=== PATIENT | male | born 1985 | race American Indian/Alaskan Native ===

== ENCOUNTER 2017-02-04 19:31 | Emergency (ER) | payer BC ==
[2017-02-04 19:32] VITALS: BMI 28.1
--- NOTE | 2017-02-04 20:38 | ED PDOC ---
Arrival/HPI <Veronika Flores - Last Filed: 02/04/17 22:53> - General Historian: Patient - History of Present Illness Time/Duration: < week (3 days ) Symptom Onset: Gradual Symptom Course: Intermittent Severity Level: Mild <Fred Cowart - Last Filed: 02/04/17 23:05> - General Chief Complaint: Abdominal Pain Time Seen by Provider: 02/04/17 20:15 - History of Present Illness Narrative History of Present Illness (Text): 02/04/17 20:35 31 year old M w/ no Past medical history presents to the Emergency department complaining of abd pain. Pt reports a "funny feeling" in his abd x3days that progressed to intense pain this afternoon while at work. Pt states pain lasted ~ 1hr before resolving. Pain then returned when pt returned home from work which prompted pt to come be evaluated. Pt has never had this pain before. Pain localized to epigastric w/ radiation into RUQ. Pt reports eating a fattier diet than normal over the weekend. Pt admits to 2 episodes of loose BM this AM but no kriss diarrhea. Pt denies F/C, chest pain, shortness of breath, N/V, reflux, D/C. (Veronika Flores) Past Medical History - Provider Review Nursing Documentation Reviewed: Yes - Infectious Disease Hx of Infectious Diseases: None - Tetanus Immunization Tetanus Immunization: Unknown - Psychiatric Hx Depression: No Hx Emotional Abuse: No Hx Physical Abuse: No Hx Substance Use: No - Suicidal Assessment Feels Threatened In Home Enviroment: No <Veronika Flores - Last Filed: 02/04/17 22:53> Family/Social History Family/Social History: No Known Family HX Smoking Status: n Hx Alcohol Use: Yes Hx Substance Use: No Hx Substance Use Treatment: No <Veronika Flores - Last Filed: 02/04/17 22:53> - Physician Review Nursing Documentation Reviewed: Yes <Fred Cowart - Last Filed: 02/04/17 23:05> Allergies/Home Meds <Veronika Flores - Last Filed: 02/04/17 22:53> <Fred Cowart - Last Filed: 02/04/17 23:05> Allergies/Adverse Reactions: Allergies No Known Allergies Allergy (Verified 06/15/13 14:41) Home Medications: Home Meds Medication Instructions Recorded Confirmed No Known Home Med [No Known Home 06/15/13 06/15/13 Med] Review of Systems - Physician Review All systems were reviewed & negative as marked: Yes - Review of Systems Constitutional: absent: Fevers Cardiovascular: absent: Chest Pain <Veronika Flores - Last Filed: 02/04/17 22:53> - Review of Systems Gastrointestinal: Abdominal Pain <Fred Cowart - Last Filed: 02/04/17 23:05> Physical Exam Vital Signs Reviewed: Yes Temperature: Afebrile Blood Pressure: Normal Pulse: Regular Respiratory Rate: Normal Appearance: Positive for: Well-Appearing, Non-Toxic, Comfortable Pain Distress: None Mental Status: Positive for: Alert and Oriented X 3 - Systems Exam Head: Present: Atraumatic, Normocephalic Pupils: Present: PERRL Extroacular Muscles: Present: EOMI Mouth: Present: Moist Mucous Membranes Respiratory/Chest: Present: Clear to Auscultation, Good Air Exchange. No: Respiratory Distress, Accessory Muscle Use Cardiovascular: Present: Regular Rate and Rhythm, Normal S1, S2. No: Murmurs Abdomen: Present: Normal Bowel Sounds. No: Tenderness, Distention, Peritoneal Signs, Rebound, McBurney's Point Tender, Rovsing's Sign Present Upper Extremity: Present: Normal Inspection Lower Extremity: Present: Normal Inspection Neurological: Present: GCS=15, Speech Normal Skin: Present: Warm, Dry, Normal Color Psychiatric: Present: Alert, Oriented x 3, Normal Affect, Normal Mood <Veronika Flores - Last Filed: 02/04/17 22:53> Medical Decision Making - Lab Interpretations I have reviewed the lab results: Yes Interpretation: All labs normal <Veronika Flores - Last Filed: 02/04/17 22:53> - RAD Interpretation Filler Shaker: Radiologist <Fred Cowart - Last Filed: 02/04/17 23:05> ED Course and Treatment: 02/04/17 20:54 31 year old M w/ abd pain - Pepcid - CBC, BMP, Lipase - Chest X-ray - Abd 02/04/17 21:09 (Veronika Flores) Patient Seen With Resident: In agreement with resident note and more details are present in their notes. Patient was seen and evaluated with resident, came up with plan and treatment together. Patient is a 31 year old male who presents to the emergency department complaining of 3 day duration of intermittent epigastric abdominal pain radiating to right upper quadrant. Labs, abdominal ultrasound and Chest X-ray are unremarkable. On re-evaluation, patient feels better and is in no acute distress. I have discussed the results and plan with the patient, who expresses understanding. Patient in agreement with plan to be discharged home. Patient is stable for discharge. Patient was instructed to follow up with physician or return if symptoms worsen or new concerning symptoms arise. (Fred Cowart) - Lab Interpretations Lab Results: 02/04/17 21:25 02/04/17 21:25 Lab Results 02/04/17 21:25: Sodium 138, Potassium 4.3, Chloride 100, Carbon Dioxide 30, Anion Gap 12, BUN 19, Creatinine 0.9, Est GFR ( Amer) > 60, Est GFR (Non- Af Amer) > 60, Random Glucose 86, Calcium 9.3, Total Bilirubin 1.3, AST 29, ALT 43, Alkaline Phosphatase 51, Lactate Dehydrogenase 443, Total Creatine Kinase 133, Troponin I < 0.01, Total Protein 7.9, Albumin 4.3, Globulin 3.6, Albumin/ Globulin Ratio 1.2, Lipase 59 02/04/17 21:25: WBC 4.8, RBC 5.20, Hgb 15.2, Hct 43.8, MCV 84.2, MCH 29.2, MCHC 34.7, RDW 13.1, Plt Count 236, MPV 8.7, Gran % 40.9 L, Lymph % (Auto) 51.0 H, Logan % (Auto) 5.4, Eos % (Auto) 1.9, Baso % (Auto) 0.8, Gran # 1.95, Lymph # 2.4 , Logan # 0.3, Eos # 0.1, Baso # 0.04 - RAD Interpretation Narrative RAD Interpretations (Text): 02/04/17 22:53 Abd US: FINDINGS: Liver: Unremarkable. No mass. No intrahepatic bile duct dilation. Gallbladder: Unremarkable. No gallstones. Common bile duct: Unremarkable as visualized. No stones. No dilation. Pancreas: Pancreas is not well-visualized. Kidneys: Unremarkable. No stones. No solid mass. No hydronephrosis. Spleen: Unremarkable. No splenomegaly. Aorta: Unremarkable. No aneurysm. Inferior vena cava: Unremarkable. IMPRESSION: No acute findings. 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 / has examined the patient and agrees with the treatment plan. <Fred Cowart - Last Filed: 02/04/17 23:05> Disposition/Present on Arrival - Present on Arrival Any Indicators Present on Arrival: No History of DVT/PE: No History of Uncontrolled Diabetes: No Urinary Catheter: No History of Decub. Ulcer: No History Surgical Site Infection Following: None - Disposition Have Diagnosis and Disposition been Completed?: Yes Disposition Time: 22:55 <Veronika Flores - Last Filed: 02/04/17 22:53> <Fred Cowart - Last Filed: 02/04/17 23:05> - Disposition Diagnosis: Gastritis Disposition: HOME/ ROUTINE Patient Problems: Current Active Problems Problem Status Onset Gastritis Acute Condition: GOOD Discharge Instructions (ExitCare): Gastritis (ED), Gas and Bloating (ED) Additional Instructions: Follow up w/ PMD in 1-2 weeks Referrals: Andrew Walker MD [Primary Care Provider] - Follow up with primary
[2017-02-04 21:32] LABS: ADD MANUAL DIFF? NO
[2017-02-04 21:33] VITALS: BP 126/64; PULSE 60; RESP 17; TEMP 98.1; O2SAT 98
[2017-02-04 21:42] LABS: BASO # 0.04 K/mm3 (0.0-2.0); BASO % 0.8 % (0.0-3.0); EOS # 0.1 (0.0-0.7); EOS % 1.9 % (1.5-5.0); GRAN # 1.95 (1.4-6.5); GRAN % 40.9 % (50.0-68.0); HEMATOCRIT 43.8 % (42.0-52.0); LYMPH # 2.4 (1.2-3.4); MEAN CELL VOLUME 84.2 fL (80.0-105.0); MEAN CORPUSCULAR HEMOGLOBIN 29.2 pg (25.0-35.0); MEAN CORPUSCULAR HGB CONC 34.7 g/dl (31.0-37.0); MEAN PLATELET VOLUME 8.7 fl (7.0-11.0); MONO # 0.3 (0.1-0.6); MONO % 5.4 % (1.0-6.0); PLATELET COUNT 236 10^3/uL (120.0-450.0); RED CELL DISTRIBUTION WIDTH 13.1 % (11.5-14.5); WHITE BLOOD COUNT 4.8 10^3/ul (4.5-11.0)
[2017-02-04 21:46] LABS: ALB/GLOB RATIO 1.2 (1.1-1.8); ALKALINE PHOSPHATASE 51 U/L (38-133); ALT/SGPT 43 U/L (7-56); AST/SGOT 29 U/L (15-59); BILIRUBIN,TOTAL 1.3 mg/dL (0.2-1.3); BLOOD UREA NITROGEN 19 mg/dL (7-21); CALCIUM 9.3 mg/dL (8.4-10.5); CARBON DIOXIDE 30 mmol/L (21-33); CHLORIDE 100 mmol/L (98-107); GFR AFRICAN-AMERICAN > 60; GLUCOSE,RANDOM 86 mg/dL (70-110); LIPASE 59 U/L (23-300); POTASSIUM 4.3 mmol/L (3.6-5.0); SODIUM 138 mmol/L (132-148); TOTAL PROTEIN 7.9 g/dL (5.8-8.3)
[2017-02-04 22:00] LABS: TROPONIN I < 0.01 ng/mL
--- NOTE | 2017-02-05 10:00 | CARD ---
APPROVED REPORT EKG Measurement Heart [id number] CT [id number] <Conclusion> Sinus bradycardia Minimal voltage criteria for LVH, may be normal variant ST elevation, consider early repolarization, pericarditis, or injury
--- NOTE | 2017-02-05 10:18 | US ---
HISTORY: Abdominal pain COMPARISON: None. TECHNIQUE: Grayscale imaging was performed. FINDINGS: LIVER: Measures 16.1 cm. Normal echogenicity of the liver parenchyma. No mass. No intrahepatic bile duct dilatation. GALLBLADDER: Unremarkable. No gallstones. COMMON BILE DUCT: Measures 3.1 mm. No stones. No dilatation. PANCREAS: Unremarkable as visualized. No mass. No ductal dilatation. RIGHT KIDNEY: Measures 9.4cm. Normal echogenicity. No calculus, mass, or hydronephrosis. LEFT KIDNEY: Measures 10.0cm. Normal echogenicity. No calculus, mass, or hydronephrosis. SPLEEN: Normal in size and contour. No mass. AORTA: No aneurysmal dilatation. IVC: Unremarkable. OTHER FINDINGS: None. IMPRESSION: Normal examination. A preliminary report was provided by [facility].
== END 2017-02-04 23:10 | disposition home or self-care (01) ==
LOC: ED 19:31
DX: K29.70 Gastritis, unspecified, without bleeding (principal)

== ENCOUNTER 2017-03-04 16:45 | Emergency (ER) | payer BC ==
[2017-03-04 17:09] VITALS: BMI 28.3
[2017-03-04 17:12] VITALS: TEMP 97.9
[2017-03-04 17:57] LABS: URINE BILIRUBIN NEGATIVE (NEGATIVE); URINE BLOOD NEGATIVE (NEGATIVE); URINE GLUCOSE (UA) NEGATIVE (NEGATIVE); URINE LEUKOCYTE ESTERASE NEGATIVE Leu/uL (NEGATIVE); URINE NITRATE NEGATIVE (NEGATIVE); URINE PROTEIN NEGATIVE mg/dL (<30 mg/dL); URINE UROBILINOGEN 0.2 E.U./dL (<1 E.U./dL)
[2017-03-04 17:58] LABS: URINE APPEARANCE CLEAR (CLEAR); URINE COLOR YELLOW (YELLOW)
[2017-03-04 18:26] VITALS: BP 114/69; PULSE 71; RESP 18; O2SAT 99
--- NOTE | 2017-03-04 18:30 | ED PDOC ---
Arrival/HPI - General Chief Complaint: Male Genitourinary Time Seen by Provider: 03/04/17 17:40 Historian: Patient - History of Present Illness Narrative History of Present Illness (Text): 03/04/17 19:20 A 31 year old male, who denies any past medical history, presents to the emergency department for two day duration of suprapubic burning on urination and prostate pain on urination. Patient denies any unprotected sex, penile discharge or any other complaints at this time. Time/Duration: Other (2 days) Symptom Onset: Sudden Symptom Course: Unchanged Activities at Onset: Rest Context: Home Past Medical History - Provider Review Nursing Documentation Reviewed: Yes - Infectious Disease Hx of Infectious Diseases: None - Tetanus Immunization Tetanus Immunization: Unknown - Psychiatric Hx Depression: No Hx Emotional Abuse: No Hx Physical Abuse: No Hx Substance Use: No - Anesthesia Hx Anesthesia: No - Suicidal Assessment Feels Threatened In Home Enviroment: No Family/Social History - Physician Review Nursing Documentation Reviewed: Yes Family/Social History: No Known Family HX Smoking Status: Never Smoked Hx Alcohol Use: Yes Frequency of alcohol use: Socially Hx Substance Use: No Hx Substance Use Treatment: No Allergies/Home Meds Allergies/Adverse Reactions: Allergies No Known Allergies Allergy (Verified 03/04/17 17:09) Home Medications: Home Meds Medication Instructions Recorded Confirmed No Known Home Med [No Known Home 06/15/13 03/04/17 Med] Review of Systems - Physician Review All systems were reviewed & negative as marked: Yes Physical Exam - Physical Exam Narrative Physical Exam (Text): 03/04/17 19:14 - Review of Systems Constitutional: Normal. absent: Fatigue, Weight Change, Fevers Eyes: Normal ENT: Normal Respiratory: Normal absent: SOB, Cough, Sputum Cardiovascular: Normal absent: Chest pain, Palpitations, Syncope Gastrointestinal: Normal absent: Abdominal pain, Diarrhea, Nausea, Vomiting Genitourinary: suprapubic burning on urination, prostate pain on urination absent: Frequency, Hematuria Musculoskeletal: Normal. absent: Arthralgias, Back Pain, Neck Pain Skin: Normal Neurological: Normal absent: Focal Weakness Endocrine: Normal Hemo/Lymphatic: Normal Psychiatric: Normal - Physical exam Patient appears age appropriate, speaking full sentences without difficulty - Systems Exam Head: Present: Atraumatic, Normocephalic Pupils: Present: PERRL Extraocular Muscles: Present: EOMI Conjunctiva: Present: Normal Mouth: Present: Moist Mucous Membranes Neck: Present: Normal Range of Motion. No: MIDLINE TENDERNESS, Paraspinal Tenderness Respiratory/Chest: Present: Clear to Auscultation, Good Air Exchange. No: Respiratory Distress, Accessory Muscle Use, Tachypnic Cardiovascular: Present: Regular Rate and Rhythm, Normal S1, S2, Peripheral Pulses Present. No: Murmurs Abdomen: Present: Normal Bowel Sounds, No: Tenderness, Peritoneal Signs, Rebound, Guarding, Distention Back: Present: Normal Inspection. No: Midline Tenderness, Paraspinal Tenderness Upper Extremity: Present: Normal Inspection. No: Cyanosis, Edema Lower Extremity: Present: Normal Inspection. No: Edema Neurological: Present: GCS=15, Speech Normal, cranial nerves II through XII fully intact with no cerebellar abnormality, neuro-sensory fully intact. No focal neurological deficits. Skin: Present: Warm, Dry, Normal Color. No: Rashes Lymphatic: Present: OX3, NI, NC Psychiatric: Present: Alert, Oriented x 3, Normal Insight, Normal Concentration Genitourinary male: (Julián SOLIS present on exam) testicles nontender, no penile discharge, no tenderness. Patient has no internal or external hemorrhoids, no fissures, no prostate tenderness on palpation Vital Signs Reviewed: Yes Vital Signs Temp Pulse Resp BP Pulse Ox 03/04/17 18:25 71 18 114/69 99 03/04/17 17:10 97.9 F 75 19 112/74 98 Temperature: Afebrile Blood Pressure: Normal Pulse: Regular Respiratory Rate: Normal Appearance: Positive for: Well-Appearing, Non-Toxic, Comfortable Pain Distress: None Mental Status: Positive for: Alert and Oriented X 3 Medical Decision Making ED Course and Treatment: 03/04/17 19:12 Impression: A 31 year old male with suprapubic burning on urination and prostate pain on urination. On exam, testicles nontender, no penile discharge, no tenderness. Patient has no internal or external hemorrhoids, no fissures, no prostate tenderness on palpation. Differential Diagnosis included but are not limited to: prostatitis vs. UTI vs. STD Plan: -- labs -- Urinalysis -- Reassess and disposition Prior Visits: Notes and results from previous visits were reviewed. Patient last reported to the emergency department on 02/04/17 for evaluation of abdominal pain. Progress Notes: Patient instructed to follow up with medical records for gonorrhea, chlamydia results. Patient also instructed he needs to follow up with Urologist. prostatitis unlikely since pt has no prostate tenderness to palpation and no evidence of UTI Pt states he understands to return to the ER right away for new or worsening symptoms or for inability to f/u with PMD or specialist as instructed. Patient states that he fully agrees with and understands discharge instructions. States that he agrees with the plan and disposition. Verbalized and repeated discharge instructions and plan. I have given the patient opportunity to ask any additional questions. - Lab Interpretations Lab Results: Lab Results 03/04/17 17:40: Urine Color Yellow, Urine Appearance Clear, Urine pH 6.0, Ur Specific [place] 1.025, Urine Protein Negative, Urine Glucose (UA) Negative, Urine Ketones Negative, Urine Blood Negative, Urine Nitrate Negative, Urine Bilirubin Negative, Urine Urobilinogen 0.2, Ur Leukocyte Esterase Negative I have reviewed the lab results: Yes - Scribe Statement The provider has reviewed the documentation as recorded by the Mita Wiley Provider Scribe Attestation: All medical record entries made by the Scribe were at my direction and personally dictated by me. I have reviewed the chart and agree that the record accurately reflects my personal performance of the history, physical exam, medical decision making, and the department course for this patient. I have also personally directed, reviewed, and agree with the discharge instructions and disposition. Disposition/Present on Arrival - Present on Arrival Any Indicators Present on Arrival: No History of DVT/PE: No History of Uncontrolled Diabetes: No Urinary Catheter: No History of Decub. Ulcer: No History Surgical Site Infection Following: None - Disposition Have Diagnosis and Disposition been Completed?: Yes Diagnosis: Urethritis Disposition: HOME/ ROUTINE Disposition Time: 18:29 Condition: GOOD Discharge Instructions (ExitCare): Nonspecific Urethritis in Men (ED) Additional Instructions: PLEASE RETURN TO THE EMERGENCY DEPARTMENT FOR NEW OR WORSENING SYMPTOMS. RETURN RIGHT AWAY IF YOU CANNOT FOLLOW UP WITH YOUR PRIMARY CARE DOCTOR, CLINIC, OR SPECIALIST IN 1-2 DAYS. Referrals: Andrew Walker MD [Primary Care Provider] - Follow up with primary Maciej Singleton MD [Staff Provider] - Follow up with primary
== END 2017-03-04 18:57 | disposition home or self-care (01) ==
LOC: ED 16:45
DX: N34.2 Other urethritis (principal)

== ENCOUNTER 2018-10-22 19:44 | Emergency (ER) | payer BC ==
[2018-10-22 20:10] VITALS: RESP 18; TEMP 98.1; BMI 26.4
--- NOTE | 2018-10-22 20:30 | ED PDOC ---
Arrival/HPI - General Chief Complaint: Medical Clearance Time Seen by Provider: 10/22/18 19:50 Historian: Patient - History of Present Illness Narrative History of Present Illness (Text): 10/22/18 20:27 33-year-old male presents today with a prescription for a chest x-ray. Patient states he was seen by his primary care physician today and was given a prescription for Augmentin, methylprednisolone, Pro Air and cough medication. Patient states he has had a cough for the past 2 weeks. Patient states he has had yellow sputum with it. He denies chest pain or shortness of breath. He denies any fevers or chills. Complaining of some nasal congestion. No sore throat. No abdominal pain. No nausea or vomiting. No other complaints. Past Medical History - Provider Review Nursing Documentation Reviewed: Yes - Travel History Have you recently traveled outside [place] w/in the past 3 mons?: No - Infectious Disease Hx of Infectious Diseases: None - Tetanus Immunization Tetanus Immunization: Unknown - Psychiatric Hx Depression: No Hx Emotional Abuse: No Hx Physical Abuse: No Hx Substance Use: No - Anesthesia Hx Anesthesia: No - Suicidal Assessment Feels Threatened In Home Enviroment: No Family/Social History - Physician Review Nursing Documentation Reviewed: Yes Family/Social History: Unknown Family HX Smoking Status: Never Smoked Hx Alcohol Use: Yes Hx Substance Use: No Hx Substance Use Treatment: No Allergies/Home Meds Allergies/Adverse Reactions: Allergies No Known Allergies Allergy (Verified 10/22/18 19:57) Home Medications: Home Meds Medication Instructions Recorded Confirmed No Known Home Med 06/15/13 10/22/18 Review of Systems - Review of Systems Constitutional: absent: Fatigue, Fevers ENT: Sinus Congestion Respiratory: Cough, Sputum. absent: SOB, Wheezing Cardiovascular: absent: Chest Pain, Palpitations Gastrointestinal: absent: Abdominal Pain, Nausea, Vomiting Genitourinary Male: absent: Dysuria Musculoskeletal: absent: Arthralgias, Back Pain, Neck Pain Skin: absent: Rash, Pruritis Neurological: absent: Headache, Dizziness Psychiatric: absent: Anxiety, Depression Physical Exam Vital Signs Reviewed: Yes Vital Signs Temp Pulse Resp BP Pulse Ox 10/22/18 19:54 98.1 F 82 18 120/77 99 Temperature: Afebrile Blood Pressure: Normal Pulse: Regular Respiratory Rate: Normal Appearance: Positive for: Well-Appearing, Non-Toxic, Comfortable Pain Distress: None Mental Status: Positive for: Alert and Oriented X 3 - Systems Exam Head: Present: Atraumatic Mouth: Present: Moist Mucous Membranes Respiratory/Chest: Present: Clear to Auscultation, Good Air Exchange. No: Respiratory Distress, Accessory Muscle Use, Wheezes, Retracting, Rhonchi, Tachypneic Cardiovascular: Present: Regular Rate and Rhythm. No: Tachycardic Abdomen: No: Tenderness Upper Extremity: Present: Normal ROM Lower Extremity: Present: Normal ROM Neurological: Present: GCS=15, Speech Normal Skin: Present: Warm, Dry, Normal Color. No: Rashes Psychiatric: Present: Alert, Oriented x 3 Medical Decision Making ED Course and Treatment: 10/22/18 20:28 33-year-old male presents today with prescription for chest x-ray. Vital signs are stable. Chest x-ray: no infiltrate Patient already has a prescription for Augmentin, methylprednisolone, pro-air and cough medications. pt was advised to take medications as prescribed by his primary care physician and return to the ER if symptoms worsen persist or if new concerning symptoms develop Patient verbalizes understanding of discharge instructions and need for immediate followup. All aspects of this case were discussed the attending of record. Impression: Cough Continue medications as prescribed by your primary care physician Increase fluids Follow-up with a primary care physician within the next 2 days Return immediately if symptoms worsen persist or if new concerning symptoms develop - RAD Interpretation Radiology Orders: 10/22/18 20:26 CHEST TWO VIEWS (PA/LAT) [RAD] Stat Disposition/Present on Arrival - Present on Arrival Any Indicators Present on Arrival: No History of DVT/PE: No History of Uncontrolled Diabetes: No Urinary Catheter: No History of Decub. Ulcer: No History Surgical Site Infection Following: None - Disposition Have Diagnosis and Disposition been Completed?: Yes Diagnosis: Cough Disposition: HOME/ ROUTINE Disposition Time: 20:30 Patient Plan: Discharge Patient Problems: Current Active Problems Problem Status Onset Cough Acute Condition: GOOD Discharge Instructions (ExitCare): Cough in Adults Additional Instructions: Continue medications as prescribed by your primary care physician Increase fluids Follow-up with a primary care physician within the next 2 days Return immediately if symptoms worsen persist or if new concerning symptoms develop Referrals: Almas Fontana MD [Primary Care Provider] - Follow up with primary Forms: [employer] (Icelandic), WORK NOTE
[2018-10-22 21:05] VITALS: BP 120/85; PULSE 75; O2SAT 100
--- NOTE | 2018-10-23 10:08 | RAD ---
Date of service: 10/22/2018 HISTORY: cough x 2 weeks. r/o Pneumonia COMPARISON: No prior. TECHNIQUE: Chest PA and lateral FINDINGS: LUNGS: No active pulmonary disease. PLEURA: No significant pleural effusion identified. No pneumothorax apparent. CARDIOVASCULAR: No aortic atherosclerotic calcification present. Normal cardiac size. No pulmonary vascular congestion. OSSEOUS STRUCTURES: No significant abnormalities. VISUALIZED UPPER ABDOMEN: Normal. OTHER FINDINGS: None. IMPRESSION: No active disease.
== END 2018-10-22 21:05 | disposition home or self-care (01) ==
LOC: ED 19:44
DX: R05 Cough (principal)